=== PATIENT | male | born 1940 | race Caucasian/White ===

== ENCOUNTER 2017-04-22 10:54 | Emergency (ER) | payer MEDICARE, BC, OTHER ==
[2017-04-22] MEDS ORDERED: HYDROcodone/Acetaminophen 5/325 mg Tablet ONE (12:33)
[2017-04-22] MEDS ORDERED: Acyclovir 800 mg Tablet PO SCH (12:45)
[2017-04-22] MEDS ORDERED: Acyclovir 400 mg Tablet PO SCH (13:15)
[2017-04-22] MEDS ORDERED: Fluorescein Opthalmic Strip ONE (13:17)
[2017-04-22] MEDS ORDERED: Proparacaine 0.5% Opth 15 ML BOT ONE (13:17)
== END 2017-04-22 14:29 | disposition home or self-care (01) ==
LOC: ERS 10:54
DX: B02.30 Zoster ocular disease, unspecified (principal)
CPT/HCPCS: 99283

== ENCOUNTER 2018-02-19 14:43 | Outpatient (CLI) | payer MEDICARE, OTHER | END 2018-02-19 14:44 | disposition home or self-care (01) | LOC: LABBT 14:43 | PROVIDERS: ATTEND Urology | DX: Z01.818 Encounter for other preprocedural examination (principal); N40.0 Benign prostatic hyperplasia without lower urinary tract symptoms ==

== ENCOUNTER 2018-02-27 05:56 | Day surgery (SDC) | payer MEDICARE, OTHER ==
[2018-02-19 15:12] VITALS: BMI 21.6
--- NOTE | 2018-02-27 10:15 | OP ---
DATE OF PROCEDURE: 02/27/2018 PREOPERATIVE DIAGNOSIS: Benign prostatic hypertrophy. POSTOPERATIVE DIAGNOSIS: Benign prostatic hypertrophy. PROCEDURE: GreenLight laser vaporization of the prostate with enucleation of the lateral lobes. A total of 140,969 joules were used. SURGEON: Farideh Fox M.D. ANESTHESIA: General with endotracheal tube. COMPLICATIONS: None. DRAINS REMAININ Faroese Santo. ESTIMATED BLOOD LOSS: Minimal. SPECIMENS: Prostate. FINDINGS: At opening up of the prostatic urethra with enucleation of the lateral lobes with a good stream noted at the end. INDICATIONS: The patient is a 77-year-old male who was followed in the office for BPH and noted to have worsening lower urinary tract symptoms despite medications and so was set up for definitive surgical intervention. TECHNIQUE: The patient was brought into the room by Anesthesia, laid on the table in supine position. After receiving general anesthetic via endotracheal tube his perineum was prepped and draped in sterile fashion after he was placed in the lithotomy position. Using a 22.5 Faroese cystoscope and 30-degree lens was used to enter the bladder. The ureteral orifices were identified and preserved throughout the case. The middle lobe was not significantly enlarged, but elevated and taken down to the bladder floor. There was a trigonal ridge that was also taken down using the power of 80, still in a power of 80 the lateral lobes near the bladder neck were taken down and a power of 180 was used to enucleate the lateral lobes. These were taken all the way down to the veru. A power of 80 was used near the veru. When the scope was removed, a minimal stream was noted , I think that this was due to a chip that was still in the way, so the chips were all evacuated and ensured to be out and then with a full bladder, the scope was removed and a good stream was noted again. With a decompressed bladder hemostasis was ensured and a power of 80 was used to paint the prostatic bed and any concerning areas. There was no hematuria noted at the end of the case and so at this point, a wire was left in place. The scope was removed leaving the wire in place and then a [place] catheter was placed over the wire, leaving just the catheter itself. It was secured to the patient's leg and then he was awakened and transferred to the PACU in stable condition. A total of 140,969 joules were used. [facility]
[2018-02-27] MEDS ORDERED: Succinylcholine Chloride 20 MG/ML 10 ml SYRINGE FS ONE (10:21)
[2018-02-27] MEDS ORDERED: Lidocaine 1% PF 5 ML VIAL ONE (10:21)
[2018-02-27] MEDS ORDERED: Ondansetron HCl/PF 4 MG/2 ML Vial ONE (10:21)
[2018-02-27] MEDS ORDERED: PROPOFOL 200 MG/20 ML VIAL ONE (10:21)
== END 2018-02-27 11:30 | disposition home or self-care (01) ==
LOC: SDC 05:56
PROVIDERS: ATTEND Urology
PROC: 0VB08ZZ Excision of Prostate, Via Natural or Artificial Opening Endoscopic (ICD-10-PCS; principal; 2018-02-27)
DX: N40.1 Benign prostatic hyperplasia with lower urinary tract symptoms (principal); R35.0 Frequency of micturition; R35.1 Nocturia; R97.20 Elevated prostate specific antigen [PSA]; I10 Essential (primary) hypertension; E78.00 Pure hypercholesterolemia, unspecified; I25.10 Atherosclerotic heart disease of native coronary artery without angina pectoris; I25.2 Old myocardial infarction; Z87.891 Personal history of nicotine dependence; Z79.82 Long term (current) use of aspirin; Z79.899 Other long term (current) drug therapy; Z88.0 Allergy status to penicillin; Z95.5 Presence of coronary angioplasty implant and graft; Z95.1 Presence of aortocoronary bypass graft
CPT/HCPCS: 88305; 96374; J2001; J2405; J2704

== ENCOUNTER 2018-04-12 12:56 | Outpatient (CLI) | payer MEDICARE, OTHER ==
[~2018-04-12 12:56] MED LIST: Gadobenate Dimeglumine 529 MG/1 ML (20ML VIAL) ONE
--- NOTE | 2018-04-12 15:42 | MRI ---
BRAIN MRI WITH AND WITHOUT CONTRAST: CLINICAL HISTORY: Memory loss. FINDINGS: There is enlargement of the ventricular system. No midline shift or acute territorial infarction. T here are no significant signal abnormalities of brain parenchymal. Minimal chronic ischemic disease is present. No pathologic intraaxial enhancement. Imaged skull base flow voids are patent. [place] intraocular lenses are absent. IMPRESSION: 1. Enlarged ventricular system which is out of size proportion to the cerebral sulci and, therefore, an entity such as normal-pressure hydrocephalus is not excluded. Recommend clinical correlation in this regard. 2. Minimal chronic ischemic disease. 3. No acute territorial infarction or midline shift. POS: DAVIN
== END 2018-04-12 12:57 | disposition home or self-care (01) ==
LOC: BICMRI 12:56
PROVIDERS: ATTEND Specialist
DX: R41.3 Other amnesia (principal)
CPT/HCPCS: 70553; 81001; 82565; 87086; A9579

== ENCOUNTER 2018-07-05 09:43 | Outpatient (CLI) | payer MEDICARE, OTHER ==
--- NOTE | 2018-07-05 14:00 | PET ---
NUCLEAR MEDICINE PET IMAGING FOR DEMENTIA: HISTORY: Memory loss. COMPARISON: None. TECHNIQUE: PET imaging for dementia was performed after the patient was administered 8 mCi of F18-FDG. FINDINGS/IMPRESSION: There is no evidence of decreased radiotracer localization to suggest neurodegenerative disorder. POS: CHIOMA
== END 2018-07-05 09:44 | disposition home or self-care (01) ==
LOC: PET 09:43
PROVIDERS: ATTEND Psychiatry & Neurology Neurology
DX: G31.84 Mild cognitive impairment of uncertain or unknown etiology (principal)
CPT/HCPCS: 78608; A9552

== ENCOUNTER 2018-09-26 15:16 | Outpatient (CLI) | payer MEDICARE, OTHER ==
--- NOTE | 2018-09-26 16:39 | ULT ---
RENAL SONOGRAM: 09/26/2018 HISTORY: Prostate cancer. FINDINGS: The right kidney measures 10.7 cm x 4.8 cm, with the left kidney measuring 12 cm x 5.7 cm. A 2.7 cm anechoic structure is seen in the mid portion of the right kidney, which demonstrates sonographic lis racteristics most compatible with a renal cyst. No solid renal mass is seen. There is no hydronephr osis, renal calculus, or perinephric collection seen bilaterally. The urinary bladder is partially distended and has a grossly normal sonographic appearance, with a ur inary bladder volume of 189.2 mL. A post void urinary bladder volume was obtained of 66.4 mL. IMPRESSION: 1. Right renal cyst. 2. No evidence of hydronephrosis. 3. Small post void residual. POS: CHIOMA
== END 2018-09-26 15:17 | disposition home or self-care (01) ==
LOC: BICULT 15:16
PROVIDERS: ATTEND Urology
DX: N31.9 Neuromuscular dysfunction of bladder, unspecified (principal); N28.1 Cyst of kidney, acquired
CPT/HCPCS: 76770

== ENCOUNTER 2019-03-13 08:21 | Outpatient (CLI) | payer MEDICARE, OTHER ==
--- NOTE | 2019-03-13 11:32 | MRI ---
MRI PROSTATE WITHOUT AND WITH CONTRAST: Date: 03/13/19 COMPARISON: None. HISTORY: 78-year-old male with elevated PSA. Patient had prior TURP. TECHNIQUE: Multiplanar, multisequence MR images were obtained of the prostate without and with IV contrast. FINDINGS: There is moderate hypertrophy of the central gland consistent with BPH. There appears to be a TURP de fect within the central gland. No low T2 signal lesion is seen throughout the prostate that is suspicious. No low signal is seen on the ADC map in the peripheral zone of the prostate. No restricted diffusion is seen in the peripheral zone of the prostate. The seminal vesicles and neurovascular bundles appear intact. No pelvic adenopathy is seen. No marrow signal abnormality is present. IMPRESSION: PI-RADS category 2 - Low likelihood that a clinically significant cancer is present. POS: Jevon
== END 2019-03-13 08:22 | disposition home or self-care (01) ==
LOC: TBSIIMAG 08:21
PROVIDERS: ATTEND Urology
DX: R97.20 Elevated prostate specific antigen [PSA] (principal); Z80.42 Family history of malignant neoplasm of prostate
CPT/HCPCS: 72197; 82565

== ENCOUNTER 2020-04-13 13:38 | Outpatient (CLI) | payer MEDICARE, OTHER ==
--- NOTE | 2020-04-13 16:27 | MRI ---
MRI PELVIS (PROSTATE) WITH AND WITHOUT IV CONTRAST WITH ADDITIONAL EVALUATION ON INDEPENDENT 3D WORKS TATION: Date: 04/13/2020 HISTORY: Elevated PSA. Urgency of micturition. Benign prostatic hyperplasia with lower urinary tract symptoms. COMPARISON: 03/13/2019. FINDINGS: The prostate gland measures 5.2 x 4.2 x 4.5 cm with a volume of 51.5 mL. There is a 2.0 cm mass in the anterior fibromuscular stroma with restricted diffusion and low density on ADC map images and low T2 signal. This mass demonstrates abnormal postcontrast arterial enhanceme nt. No focal abnormal area of restricted diffusion is seen. No lentiform area of abnormally decreased T2 signal is seen in the transition zone. The prostatic capsule is intact. The seminal vesicles are intact. No pelvic lymphadenopathy is seen. Pelvic side wall is normal. There are changes of TURP. No abnormal areas of signal replacement are seen on the T1-weighted sequences of the pelvis to sugges t osseous metastatic disease. There is colonic diverticulosis. IMPRESSION: PI-RADS 5 - Very high (clinically significant cancer is highly likely to be present). POS: OFF
== END 2020-04-13 13:39 | disposition home or self-care (01) ==
LOC: TBSIIMAG 13:38
PROVIDERS: ATTEND Urology
DX: N40.1 Benign prostatic hyperplasia with lower urinary tract symptoms (principal); R39.15 Urgency of urination; R97.20 Elevated prostate specific antigen [PSA]
CPT/HCPCS: 72197

== ENCOUNTER 2020-05-08 06:57 | Outpatient (CLI) | payer MEDICARE, OTHER ==
--- NOTE | 2020-05-08 11:44 | RAD ---
XR Chest Pa Lat STANDARD HISTORY: Preoperative evaluation COMPARISON: 03/17/2015 FINDINGS: The heart size is normal. Changes of median sternotomy are present. The aorta is tortuous. The lungs are well expanded without focal areas of consolidation, pneumothorax or pleural effusions. Nipple shadows are again seen. IMPRESSION: No radiographic evidence of acute cardiopulmonary process.
[2020-05-08 13:51] LABS: INR-International Normal Ratio 0.9; PTT 28.3 sec (22.9-36.1); Prothrombin Time 12.7 sec (12.0-14.7)
[2020-05-08 13:58] LABS: Hemoglobin 15.5 g/dL (14.0-18.0); Mean Corpuscular HGB CONC 33.3 g/dL (32.0-36.0); Mean Corpuscular Hemoglobin 29.6 pg (27.0-31.0); Platelet Count 215 thou/uL (130-400); RBC Distribution Width 12.5 % (11.5-14.5); Red Blood Cell (RBC) Count 5.23 mill/uL (4.70-6.10); White Blood Cell (WBC) Count 7.3 thou/uL (4.8-10.8)
[2020-05-08 14:19] LABS: Anion Gap 10 mmol/L (10-20); BUN (Urea Nitrogen) 16 mg/dL (8.4-25.7); Calc. Creatinine Clearance 0 mL/min (70-130); Calcium 9.8 mg/dL (7.8-10.44); Carbon Dioxide 31 mmol/L (23-31); Chloride 102 mmol/L (98-107); Estimated GFR-MDRD 75; Glucose 91 mg/dL (83-110); Potassium 4.4 mmol/L (3.5-5.1); Sodium 139 mmol/L (136-145)
[2020-05-09 12:05] LABS: SARS-CoV-2 MS2 Positive; SARS-CoV-2 N Gene Negative; SARS-CoV-2 S Gene Negative; SARS-CoV-2 by NAA Not Detected (NotDetected); SARS-CoV-2 orf1ab Negative
--- NOTE | 2020-05-15 13:20 | EKG ---
Test Reason : PREOP Blood Pressure : / mmHG Vent. Rate : 063 BPM Atrial Rate : 063 BPM P-R Int : 190 ms QRS Dur : 082 ms QT Int : 414 ms P-R-T Axes : 030 -08 068 degrees QTc Int : 423 ms Normal sinus rhythm Normal ECG No previous ECGs available Confirmed by DR. Kenna BRIGHT ([id number]) on 05/15/2020 1:19:46 PM Referred By: Confirmed By:DR. Kenna BRIGHT
== END 2020-05-08 06:58 | disposition home or self-care (01) ==
LOC: LABBT 06:57
PROVIDERS: ATTEND Urology
DX: Z01.818 Encounter for other preprocedural examination (principal); N40.1 Benign prostatic hyperplasia with lower urinary tract symptoms; R39.15 Urgency of urination; R97.20 Elevated prostate specific antigen [PSA]; Z80.42 Family history of malignant neoplasm of prostate; Z20.828 Contact with and (suspected) exposure to other viral communicable diseases
CPT/HCPCS: 71046; 80048; 85027; 85610; 85730; 93005; U0003; 87635; 93010

== ENCOUNTER 2020-05-13 07:58 | Day surgery (SDC) | payer MEDICARE, OTHER ==
[2020-05-12 13:35] VITALS: BMI 21.2
[2020-05-13] MEDS ORDERED: Levofloxacin 500 mg/D5W 100 ml Premix Bag ONE (08:24)
[2020-05-13] MEDS ORDERED: Sodium Chloride 0.9% 100 ML ONE (08:24)
[2020-05-13] MEDS ORDERED: cefTRIAXone\\ROCEPHIN 2 GM VIAL ONE (08:24)
[2020-05-13] MEDS ORDERED: Lidocaine 2% Jelly 5 ML TUBE ONE (09:27)
[2020-05-13] MEDS ORDERED: Propofol 500 MG/50 ML VIAL ONE ×2 (09:27→10:28)
[2020-05-13] MEDS ORDERED: Fentanyl 100 MCG/2 ML VIAL ONE (09:27)
[2020-05-13] MEDS ORDERED: PROPOFOL 200 MG/20 ML VIAL ONE (09:36)
[2020-05-13] MEDS ORDERED: Lidocaine 1% PF 5 ML VIAL ONE (09:36)
[2020-05-13] MEDS ORDERED: EPHEDRINE 25 MG/5 ML SYRINGE ONE (09:36)
[2020-05-13] MEDS ORDERED: Ondansetron PF 4 MG/2 ML Vial ONE (09:36)
[2020-05-13] MEDS ORDERED: Dexamethasone 20 MG/5 ML VIAL ONE (09:36)
[2020-05-13] MEDS ORDERED: PHENYLEPHRINE-NS 100 MCG/ML 10 ML SYRINGE ONE (09:36)
[2020-05-13] MEDS ORDERED: Phenazopyridine HCl 100 MG TAB ONE (11:55)
[2020-05-13] MEDS ORDERED: HYDROcodone/Acetaminophen 5/325 mg Tablet ONE (12:05)
--- NOTE | 2020-05-14 10:43 | OP ---
DATE OF PROCEDURE: 05/13/2020 PREOPERATIVE DIAGNOSES: 1. 80-year-old male with history of benign prostatic hyperplasia, status post GreenLight prostatectomy, volume study by Dr. Farideh Fox MD. 2. Elevated PSA. Family history of prostate cancer with unremarkable digital rectal exam with PSA of 13. POSTOPERATIVE DIAGNOSES: 1. 80-year-old male with history of benign prostatic hyperplasia, status post GreenLight prostatectomy, volume study by Dr. Farideh Fox MD. 2. Elevated PSA. Family history of prostate cancer with unremarkable digital rectal exam with PSA of 13. PROCEDURES PERFORMED: Flexible cystoscopy, 18-[place] Islander indwelling Santo catheter placement periprocedural, transrectal ultrasound volume study, extended core prostate biopsy, MRI guided US biopsy ANESTHESIA: TIVA. COMPLICATIONS: None apparent. DISPOSITION: To recovery room in stable condition. INDICATIONS FOR PROCEDURE AND HISTORY: Mr. Luna is a pleasant 80-year-old male previously followed by Dr. Fox with history of BPH, on dual medical therapy. He has history of incomplete emptying and he underwent transrectal ultrasound volume study by Dr. Fox, underwent GreenLight vaporization of the prostate back in February of 2018. He presents for prostate biopsy, MRI fusion as his PSA demonstrates elevation to 13.5 with unremarkable ELNIA. MRI was obtained demonstrating a region of interest PI-RADS 5, 2 cm anterior midline with unremarkable ELINA, no lymphadenopathy. He presents today for MRI fusion biopsy. Risks and complications of procedure have been discussed with him in detail including, but not limited to: Bleeding, pain, infection, injury to adjacent organs, urosepsis, clot retention, and prostate abscess. All questions were answered to his satisfaction and desired to proceed. DESCRIPTION OF PROCEDURE: After an informed consent was signed, the patient was taken to the operating room, placed in a supine position with TIVA anesthesia administered. His genital area was formally prepped and draped. A flexible cystoscopy was performed, which demonstrated no stricture. The prostatic urethra demonstrates TUR defect with bladder neck demonstrating patency caliber about 18-Sol[place] Islander. I was able to negotiate the scope without difficulty and bladder demonstrated trabeculation with no bladder tumor stones are seen. UOs are about 3 mm proximal to the bladder neck. At this time, a 16-[place] Islander Santo catheter was passed without significant issues and 10 mL insufflated. He was then placed in the left lateral decubitus position. A transrectal ultrasound was probed in which the digital rectal exam remains benign. We did a volume study, demonstrating urethral length of 2.6, height of 2.3, width of 5.35, and volume estimated to be 17 g. At this time, we loaded our MRI fusion, to fuse our ultrasound with the MRI. The lesion is 2 cm anterior midline. Despite multiple attempts to troubleshoot, the software would not recognize our ultrasound probe. We did attempt to call tech support, however, no success. Decision was made to proceed with an ultrasound-guided biopsy of the region of interest as I was able to make out the hypoechoic area anterior stromal consistent with the MRI, visualized with ultrasound. Four passes were passed in the region of interest, care was taken to avoid the urethra and Santo catheter remained in situ. I sampled four areas from the area of hypoechoic region likely consistent with the MRI region of interest. Subsequently, Santo catheter was removed demonstrating clear yellow urine and no defect in the indwelling urethral Santo catheter. No significant hematuria was noted. He tolerated the procedure well and transported to the recovery room in stable condition. Discharged with Levaquin 500 mg one p.o. b.i.d. for 5 days and will follow up with me regarding pathology. Job ID: [id number] MTDD
== END 2020-05-13 14:30 | disposition home or self-care (01) ==
LOC: SDC 07:58
PROVIDERS: ATTEND Urology
PROC: 0VB03ZX Excision of Prostate, Percutaneous Approach, Diagnostic (ICD-10-PCS; principal; 2020-05-13)
DX: C61 Malignant neoplasm of prostate (principal); N40.1 Benign prostatic hyperplasia with lower urinary tract symptoms; R39.15 Urgency of urination; G47.30 Sleep apnea, unspecified; I25.2 Old myocardial infarction; I25.10 Atherosclerotic heart disease of native coronary artery without angina pectoris; I10 Essential (primary) hypertension; Z87.891 Personal history of nicotine dependence; Z79.82 Long term (current) use of aspirin; Z79.899 Other long term (current) drug therapy; Z88.0 Allergy status to penicillin; Z95.1 Presence of aortocoronary bypass graft; Z95.5 Presence of coronary angioplasty implant and graft
CPT/HCPCS: 88305; 88344; J0696; J1100; J1956; J2405; J2704; J3010; J3490

== ENCOUNTER 2020-06-12 09:16 | Outpatient (CLI) | payer MEDICARE, OTHER ==
--- NOTE | 2020-06-12 10:23 | CT ---
ABDOMEN CT WITH AND WITHOUT CONTRAST PELVIC CT WITH AND WITHOUT CONTRAST: HISTORY: Prostate cancer. Frequent urination. COMPARISON: None. TECHNIQUE: Abdomen and pelvic CT is performed with and without contrast following urogram protocol. Coronal refo rmatted images are submitted for interpretation. FINDINGS: Lung bases: Scarring and atelectasis, minimal. Heart: Normal heart size. There are coronary artery calcifications. No significant pericardial fluid. Aorta: Normal caliber suprarenal aorta. Scattered atherosclerosis. There is dilatation of the infrare nal abdominal aorta secondary to an aneurysm measuring 3.9 cm anterior-posterior x 3.8 cm mediolateral x 2.9 cm craniocaudal. Liver: Multiple hypodensities which are presumed to represent hepatic cyst. No enhancing masses. Spleen: Appropriate enhancement. Pancreas: Appropriate enhancement. Adrenal glands: Symmetric enhancement. Lymph nodes: No gastrohepatic, retrocrural or periportal lymphadenopathy. Portal vein: Patent. Gallbladder: Unremarkable. Kidneys: Noncontrast: No evidence of nephrolithiasis. Exophytic 2.8 x 3.0 cm cyst emanating from the right rick al cortex. No enhancing masses in either kidney. There is symmetric enhancement on the arterial phase images. Contrast: Symmetric enhancement. No enhancing masses. Delayed: Symmetric excretion. No filling defects in the intrarenal or extrarenal collecting system. S ubcentimeter hypodensity in the mid to lower right renal cortex is too small to characterize. Mesentery: No mass, nephropathy, free air or free fluid. Alimentary canal: Limited evaluation due to lack of oral contrast administration. No evidence of shawn l obstruction. The ileocecal junction is normal. Normal caliber appendix. Scattered fecal material in a nondistended/nondilated colon. CT PELVIS: Reproductive organs and pelvis: Mild enlarged prostate gland. No evidence of pelvic lymphadenopathy. Urinary bladder: Normal mucosal appearance. Bilateral ureteral jets are noted on the delayed images. No lytic or blastic lesions in the osseous structures. Multilevel degenerative changes. IMPRESSION: 1. No evidence of obstructive uropathy or abnormal enhancing masses in the left or right kidney. 2. Aneurysmal dilatation of the infrarenal abdominal aorta. 3. Mildly enlarged prostate gland. Transcribed Date/Time: 06/12/2020 10:29 AM
--- NOTE | 2020-06-12 13:43 | NM ---
Exam: Nuclear medicine whole body bone scan HISTORY: Prostate cancer. Comparison none TECHNIQUE: Patient was administered 31.10 mCi of technetium 99m MDP intravenously. After appropriate delay, whole body imaging is performed FINDINGS: Physiologic distribution of the radiotracer. No scintigraphic evidence of osseous metastase s. There are degenerative changes involving bilateral first carpal metacarpal articulations, and shoulders. IMPRESSION: No scintigraphic evidence of osseous metastases.
[2020-06-12] MEDS ORDERED: Iopamidol 370 76% 100 ML VIAL ONE (15:10)
== END 2020-06-12 09:17 | disposition home or self-care (01) ==
LOC: CT 09:16
PROVIDERS: ATTEND Urology
DX: C61 Malignant neoplasm of prostate (principal); R97.20 Elevated prostate specific antigen [PSA]; Z80.42 Family history of malignant neoplasm of prostate; I77.811 Abdominal aortic ectasia
CPT/HCPCS: 74178; 78306; 82565; A9503; Q9967

== ENCOUNTER 2021-07-05 07:03 | Day surgery (SDC) | payer MEDICARE, OTHER ==
[2021-07-02 09:15] VITALS: BMI 21.2
[2021-07-05 08:05] VITALS: BP 139/81; TEMP 98
[2021-07-05 11:40] LABS: Ref Lab Test Ordered BETA AMYLOID 42/40; Reference Lab Name LABCORP
== END 2021-07-05 09:35 | disposition home or self-care (01) ==
LOC: RAD 07:03
PROVIDERS: ATTEND Specialist
PROC: 009U3ZX Drainage of Spinal Canal, Percutaneous Approach, Diagnostic (ICD-10-PCS; principal; 2021-07-05)
DX: G30.9 Alzheimer's disease, unspecified (principal); F02.80 Dementia in other diseases classified elsewhere, unspecified severity, without behavioral disturbance, psychotic disturbance, mood disturbance, and anxiety; N32.9 Bladder disorder, unspecified; Z79.82 Long term (current) use of aspirin; Z79.899 Other long term (current) drug therapy; Z88.0 Allergy status to penicillin
CPT/HCPCS: 62270

== ENCOUNTER 2021-07-12 08:11 | Outpatient (CLI) | payer MEDICARE, OTHER | END 2021-07-12 08:12 | disposition home or self-care (01) | LOC: TBSIIMAG 08:11 | PROVIDERS: ATTEND Urology | DX: C61 Malignant neoplasm of prostate (principal) | CPT/HCPCS: 72197 ==

== ENCOUNTER 2021-07-14 09:07 | Outpatient (CLI) | payer MEDICARE, OTHER | END 2021-07-14 09:08 | disposition home or self-care (01) | LOC: NM 09:07 | PROVIDERS: ATTEND Urology | DX: C61 Malignant neoplasm of prostate (principal) | CPT/HCPCS: 78306; A9503 ==

== ENCOUNTER 2021-08-27 09:48 | Outpatient (CLI) | payer MEDICARE, OTHER | END 2021-08-27 09:49 | disposition home or self-care (01) | LOC: RAD 09:48 | PROVIDERS: ATTEND Specialist | DX: K22.5 Diverticulum of esophagus, acquired (principal) | CPT/HCPCS: 74220 ==

== ENCOUNTER 2022-08-18 11:38 | Inpatient (IN) | payer MEDICARE, OTHER ==
[2022-08-18 12:15] LABS: #Lymphocytes 1.3 thou/uL (1.20-3.40); #Monocytes 0.6 thou/uL (0.11-0.59); #Neutrophils 5.5 thou/uL (1.40-6.50); %Basophils 0.1 % (0.0-1.0); %Eosinophils 0.5 % (0.0-10.0); %Monocytes 7.7 % (0.0-10.0); %Neutrophils 73.6 % (42.0-75.0); Hemoglobin 13.9 g/dL (14.0-18.0); Mean Corpuscular HGB CONC 33.3 g/dL (32.0-36.0); Mean Corpuscular Hemoglobin 28.9 pg (27.0-31.0); Mean Corpuscular Volume 86.5 fl (78.0-98.0); Mean Platelet Volume 8.7 fL (7.4-10.4); Platelet Count 205 10x3/uL (130-400); RBC Distribution Width 11.8 % (11.5-14.5); Red Blood Cell (RBC) Count 4.81 mill/uL (4.70-6.10); White Blood Cell (WBC) Count 7.5 10x3/uL (4.8-10.8)
[2022-08-18 12:54] LABS: ALT (SGPT) 19 U/L (8-55); AST (SGOT) 26 U/L (5-34); Albumin 4.6 g/dL (3.4-4.8); Alkaline Phosphatase 78 U/L (40-110); Anion Gap 11 mmol/L (10-20); BUN (Urea Nitrogen) 16 mg/dL (8.4-25.7); Bilirubin, Total 0.6 mg/dL (0.2-1.2); Calc. Creatinine Clearance 0 mL/min (70-130); Calcium 9.9 mg/dL (7.8-10.44); Carbon Dioxide 28 mmol/L (23-31); Chloride 104 mmol/L (98-107); Estimated GFR 82; Globulin 2.6 g/dL (2.4-3.5); Glucose 115 mg/dL (83-110); Potassium 4.4 mmol/L (3.5-5.1); Protein, Total 7.2 g/dL (5.8-8.1); Sodium 139 mmol/L (136-145)
[2022-08-18 15:43] LABS: Bilirubin Negative (Negative); Blood, Urine Negative (Negative); Clarity Clear (Clear); Glucose, Urine (Dipstick) Normal (Negative); Ketone, Urine Negative (Negative); Leukocyte Negative Leu/uL (Negative); Nitrite Negative (Negative); Protein, Urine (Dipstick) Negative (Neg-Trace); Specific Gravity, Urine 1.006 (1.002-1.036); Urobilinogen Normal mg/dL (Less than 2)
[2022-08-18 16:26] LABS: Troponin I 0.083 ng/mL (< 0.028)
[2022-08-18 19:40] LABS: Troponin I 0.059 ng/mL (< 0.028)
[2022-08-18 22:58] VITALS: BMI 22.8
[2022-08-18] MEDS ORDERED: Ondansetron PF 4 MG/2 ML Vial IVP PRN (23:48)
[2022-08-18] MEDS ORDERED: Acetaminophen 325 MG TAB PO PRN (23:59)
[2022-08-19] MEDS: Sodium Chloride 0.9% 1,000 ML IV SCH ×5 (00:47→22:28)
[2022-08-19] MEDS ORDERED: Amlodipine 5 MG TAB PO SCH (01:00)
[2022-08-19 05:30] LABS: #Eosinphils 0.1 thou/uL (0.0-0.7); #Monocytes 0.8 thou/uL (0.11-0.59); #Neutrophils 4.8 thou/uL (1.40-6.50); %Basophils 0.6 % (0.0-1.0); %Eosinophils 1.1 % (0.0-10.0); %Lymphocytes 26.1 % (21.0-51.0); %Monocytes 10.2 % (0.0-10.0); Hemoglobin 14.2 g/dL (14.0-18.0); Mean Corpuscular HGB CONC 33.5 g/dL (32.0-36.0); Mean Corpuscular Hemoglobin 28.8 pg (27.0-31.0); Mean Corpuscular Volume 85.8 fl (78.0-98.0); Mean Platelet Volume 8.9 fL (7.4-10.4); Platelet Count 188 10x3/uL (130-400); RBC Distribution Width 11.7 % (11.5-14.5); Red Blood Cell (RBC) Count 4.94 mill/uL (4.70-6.10); White Blood Cell (WBC) Count 7.7 10x3/uL (4.8-10.8)
[2022-08-19 05:55] LABS: Anion Gap 15 mmol/L (10-20); BUN (Urea Nitrogen) 13 mg/dL (8.4-25.7); Calc. Creatinine Clearance 73 mL/min (70-130); Calcium 9.6 mg/dL (7.8-10.44); Carbon Dioxide 23 mmol/L (23-31); Chloride 106 mmol/L (98-107); Cholesterol 251 mg/dl (< 200 Desired); Estimated GFR 89; Glucose 116 mg/dL (83-110); HDL Cholesterol 50 mg/dL (>60 Neg Risk); LDL Cholesterol, Calculated 180 mg/dL; Potassium 3.8 mmol/L (3.5-5.1); Sodium 140 mmol/L (136-145); Triglycerides 103 mg/dL (Less than 150)
[2022-08-19] MEDS: Hydrochlorothiazide 25 MG TAB PO SCH (08:49)
[2022-08-19] MEDS: Ezetimibe 10 MG TAB PO SCH (08:49)
[2022-08-19] MEDS: Amlodipine 5 MG TAB PO SCH (08:50)
[2022-08-19] MEDS: Famotidine 20 MG TAB PO SCH ×2 (08:50→20:39)
[2022-08-19] MEDS: Aspirin 81 mg Enteric Coated Tablet PO SCH (08:50)
[2022-08-19] MEDS ORDERED: Lorazepam 1 MG TAB PO SCH (11:00)
[2022-08-19] MEDS: cloNIDine 0.1 MG TAB PO PRN (15:49)
[2022-08-19] MEDS: Lorazepam 2 MG/ML VIAL SLOW IVP PRN ×2 (17:06→20:38)
[2022-08-19] MEDS ORDERED: Ziprasidone 20 MG VIAL IM SCH (18:00)
[2022-08-19] MEDS: Atorvastatin Calcium 40 MG TAB PO SCH (20:39)
[2022-08-19] MEDS ORDERED: Sterile Water 10 ML VIAL FS PRN (22:15)
[2022-08-19] MEDS: hydrALAZINE 20 MG/ML VIAL SLOW IVP PRN (22:21)
[2022-08-20] MEDS: Ziprasidone 20 MG VIAL IM SCH ×2 (00:01→00:17)
[2022-08-20] MEDS: Lorazepam 2 MG/ML VIAL SLOW IVP PRN (02:42)
[2022-08-20 05:40] LABS: #Lymphocytes 1.3 thou/uL (1.20-3.40); #Monocytes 0.7 thou/uL (0.11-0.59); #Neutrophils 6.8 thou/uL (1.40-6.50); %Basophils 0.5 % (0.0-1.0); %Eosinophils 0.1 % (0.0-10.0); %Lymphocytes 14.2 % (21.0-51.0); %Monocytes 8.2 % (0.0-10.0); Mean Corpuscular HGB CONC 33.2 g/dL (32.0-36.0); Mean Corpuscular Hemoglobin 28.4 pg (27.0-31.0); Mean Corpuscular Volume 85.6 fl (78.0-98.0); Mean Platelet Volume 9.1 fL (7.4-10.4); Platelet Count 203 10x3/uL (130-400); RBC Distribution Width 11.9 % (11.5-14.5); Red Blood Cell (RBC) Count 5.62 mill/uL (4.70-6.10); White Blood Cell (WBC) Count 8.9 10x3/uL (4.8-10.8)
[2022-08-20 06:12] LABS: Anion Gap 19 mmol/L (10-20); BUN (Urea Nitrogen) 12 mg/dL (8.4-25.7); Calc. Creatinine Clearance 73 mL/min (70-130); Carbon Dioxide 15 mmol/L (23-31); Chloride 106 mmol/L (98-107); Estimated GFR 89; Glucose 110 mg/dL (83-110); Potassium 3.7 mmol/L (3.5-5.1); Sodium 136 mmol/L (136-145)
[2022-08-20] MEDS ORDERED: FLU VACC QS2022-23(65YR UP)/PF 240 MCG/0.7 ML SYRINGE IM ONE (09:00)
[2022-08-20] MEDS: Hydrochlorothiazide 25 MG TAB PO SCH (09:18)
[2022-08-20] MEDS: Aspirin 81 mg Enteric Coated Tablet PO SCH (09:18)
[2022-08-20] MEDS: Amlodipine 5 MG TAB PO SCH (09:18)
[2022-08-20] MEDS: Famotidine 20 MG TAB PO SCH ×2 (09:18→21:51)
[2022-08-20] MEDS: Ezetimibe 10 MG TAB PO SCH (09:19)
[2022-08-20] MEDS: Sodium Chloride 0.9% 1,000 ML IV SCH (16:37)
[2022-08-20] MEDS: Zolpidem Tartrate 5 MG TAB PO PRN (21:51)
[2022-08-20] MEDS: Atorvastatin Calcium 40 MG TAB PO SCH (21:51)
[2022-08-21] MEDS: Sodium Chloride 0.9% 1,000 ML IV SCH ×2 (04:51→20:09)
[2022-08-21] MEDS: Aspirin 81 mg Enteric Coated Tablet PO SCH (08:48)
[2022-08-21] MEDS: Amlodipine 5 MG TAB PO SCH (08:48)
[2022-08-21] MEDS: Hydrochlorothiazide 25 MG TAB PO SCH (08:48)
[2022-08-21] MEDS: Famotidine 20 MG TAB PO SCH ×2 (08:48→20:05)
[2022-08-21] MEDS: Ezetimibe 10 MG TAB PO SCH (08:49)
[2022-08-21] MEDS: Atorvastatin Calcium 40 MG TAB PO SCH (20:05)
[2022-08-21] MEDS: Zolpidem Tartrate 5 MG TAB PO PRN ×2 (20:06→22:23)
[2022-08-22] MEDS: Lorazepam 2 MG/ML VIAL SLOW IVP PRN ×2 (00:32→22:45)
[2022-08-22] MEDS: Famotidine 20 MG TAB PO SCH ×2 (09:37→20:34)
[2022-08-22] MEDS: Ezetimibe 10 MG TAB PO SCH (09:37)
[2022-08-22] MEDS: Hydrochlorothiazide 25 MG TAB PO SCH (09:37)
[2022-08-22] MEDS: Aspirin 81 mg Enteric Coated Tablet PO SCH (09:38)
[2022-08-22] MEDS: Amlodipine 5 MG TAB PO SCH (09:38)
[2022-08-22] MEDS: Sodium Chloride 0.9% 1,000 ML IV SCH ×2 (16:49→17:53)
[2022-08-22] MEDS: Zolpidem Tartrate 5 MG TAB PO PRN (20:34)
[2022-08-22] MEDS: Atorvastatin Calcium 40 MG TAB PO SCH (20:34)
[2022-08-22] MEDS: cloNIDine 0.1 MG TAB PO PRN (20:34)
[2022-08-22] MEDS: hydrALAZINE 20 MG/ML VIAL SLOW IVP PRN (22:45)
[2022-08-23] MEDS: Aspirin 81 mg Enteric Coated Tablet PO SCH (07:02)
[2022-08-23] MEDS: Hydrochlorothiazide 25 MG TAB PO SCH (08:50)
[2022-08-23] MEDS: Famotidine 20 MG TAB PO SCH ×2 (08:50→20:53)
[2022-08-23] MEDS: Ezetimibe 10 MG TAB PO SCH (08:50)
[2022-08-23] MEDS: Amlodipine 5 MG TAB PO SCH (08:50)
[2022-08-23] MEDS: Sodium Chloride 0.9% 1,000 ML IV SCH (08:53)
[2022-08-23 12:40] LABS: CSF, Glucose 67 mg/dl (40-70); CSF, Protein 45 mg/dL (15-40)
[2022-08-23 16:23] LABS: Ref Lab Test Ordered BETA AMYLOID CSF; Reference Lab Name LABCORP
[2022-08-23] MEDS: Atorvastatin Calcium 40 MG TAB PO SCH (20:53)
[2022-08-23] MEDS: QUEtiapine 25 MG TAB PO SCH (20:53)
[2022-08-24] MEDS: Sodium Chloride 0.9% 1,000 ML IV SCH ×2 (00:59→12:07)
[2022-08-24] MEDS: Aspirin 81 mg Enteric Coated Tablet PO SCH (08:48)
[2022-08-24] MEDS: Amlodipine 5 MG TAB PO SCH (08:48)
[2022-08-24] MEDS: Famotidine 20 MG TAB PO SCH ×2 (08:48→20:57)
[2022-08-24] MEDS: Hydrochlorothiazide 25 MG TAB PO SCH (08:49)
[2022-08-24] MEDS: Ezetimibe 10 MG TAB PO SCH (08:49)
[2022-08-24] MEDS ORDERED: Iopamidol-370 76% 500 ML 1 ML ONE (09:16)
[2022-08-24] MEDS: QUEtiapine 25 MG TAB PO SCH (20:57)
[2022-08-24] MEDS: Atorvastatin Calcium 40 MG TAB PO SCH (20:57)
[2022-08-25] MEDS: Sodium Chloride 0.9% 1,000 ML IV SCH ×2 (02:16→21:31)
[2022-08-25 05:33] LABS: #Eosinphils 0.3 thou/uL (0.0-0.7); #Lymphocytes 2.2 thou/uL (1.20-3.40); #Monocytes 0.6 thou/uL (0.11-0.59); #Neutrophils 3.5 thou/uL (1.40-6.50); %Basophils 0.7 % (0.0-1.0); %Eosinophils 3.9 % (0.0-10.0); %Lymphocytes 33.1 % (21.0-51.0); %Monocytes 9.3 % (0.0-10.0); %Neutrophils 53.1 % (42.0-75.0); Hemoglobin 13.7 g/dL (14.0-18.0); Mean Corpuscular HGB CONC 35.3 g/dL (32.0-36.0); Mean Corpuscular Hemoglobin 30.4 pg (27.0-31.0); Mean Corpuscular Volume 85.9 fl (78.0-98.0); Platelet Count 174 10x3/uL (130-400); RBC Distribution Width 11.9 % (11.5-14.5); Red Blood Cell (RBC) Count 4.52 mill/uL (4.70-6.10); White Blood Cell (WBC) Count 6.6 10x3/uL (4.8-10.8)
[2022-08-25 05:53] LABS: Anion Gap 12 mmol/L (10-20); BUN (Urea Nitrogen) 23 mg/dL (8.4-25.7); Calc. Creatinine Clearance 70 mL/min (70-130); Carbon Dioxide 23 mmol/L (23-31); Chloride 106 mmol/L (98-107); Estimated GFR 88; Glucose 102 mg/dL (83-110); Potassium 3.3 mmol/L (3.5-5.1); Sodium 138 mmol/L (136-145)
[2022-08-25] MEDS: Famotidine 20 MG TAB PO SCH ×2 (09:14→20:36)
[2022-08-25] MEDS: Ezetimibe 10 MG TAB PO SCH (09:14)
[2022-08-25] MEDS: Aspirin 81 mg Enteric Coated Tablet PO SCH (09:14)
[2022-08-25] MEDS: Hydrochlorothiazide 25 MG TAB PO SCH (09:14)
[2022-08-25] MEDS: Amlodipine 5 MG TAB PO SCH (09:14)
[2022-08-25] MEDS: Potassium Chloride 10 MEQ TAB PO SCH (18:11)
[2022-08-25] MEDS: Atorvastatin Calcium 40 MG TAB PO SCH (20:36)
[2022-08-25] MEDS: QUEtiapine 25 MG TAB PO SCH (20:36)
[2022-08-26 05:59] LABS: #Basophils 0.1 thou/uL (0.0-0.2); #Eosinphils 0.2 thou/uL (0.0-0.7); #Lymphocytes 1.7 thou/uL (1.20-3.40); #Monocytes 0.8 thou/uL (0.11-0.59); #Neutrophils 5.5 thou/uL (1.40-6.50); %Basophils 0.6 % (0.0-1.0); %Eosinophils 2.1 % (0.0-10.0); %Lymphocytes 21.1 % (21.0-51.0); %Monocytes 9.7 % (0.0-10.0); %Neutrophils 66.5 % (42.0-75.0); Hemoglobin 13.2 g/dL (14.0-18.0); Mean Corpuscular HGB CONC 33.6 g/dL (32.0-36.0); Mean Corpuscular Volume 86.3 fl (78.0-98.0); Mean Platelet Volume 9.5 fL (7.4-10.4); Platelet Count 174 10x3/uL (130-400); RBC Distribution Width 11.9 % (11.5-14.5); Red Blood Cell (RBC) Count 4.54 mill/uL (4.70-6.10); White Blood Cell (WBC) Count 8.3 10x3/uL (4.8-10.8)
[2022-08-26 06:19] LABS: Anion Gap 14 mmol/L (10-20); BUN (Urea Nitrogen) 20 mg/dL (8.4-25.7); Calc. Creatinine Clearance 74 mL/min (70-130); Calcium 9.2 mg/dL (7.8-10.44); Carbon Dioxide 24 mmol/L (23-31); Chloride 105 mmol/L (98-107); Estimated GFR 90; Glucose 96 mg/dL (83-110); Potassium 3.6 mmol/L (3.5-5.1); Sodium 139 mmol/L (136-145)
[2022-08-26] MEDS: Sodium Chloride 0.9% 1,000 ML IV SCH (06:35)
[2022-08-26 08:22] VITALS: BP 147/78; TEMP 97.3
[2022-08-26] MEDS: Amlodipine 5 MG TAB PO SCH (08:33)
[2022-08-26] MEDS: Ezetimibe 10 MG TAB PO SCH (08:33)
[2022-08-26] MEDS: Potassium Chloride 10 MEQ TAB PO SCH (08:33)
[2022-08-26] MEDS: Famotidine 20 MG TAB PO SCH (08:33)
[2022-08-26] MEDS: Aspirin 81 mg Enteric Coated Tablet PO SCH (08:33)
[2022-08-26] MEDS: Hydrochlorothiazide 25 MG TAB PO SCH (08:33)
== END 2022-08-26 12:30 | disposition home health service (06) | DRG 56 ==
LOC: ERS 11:38 → ERHOLD 14:48 → NEURO 21:34 → OBSVTOIN 08-19 17:49
PROVIDERS: ADMIT Specialist; ATTEND Specialist
PROC: 009U3ZZ Drainage of Spinal Canal, Percutaneous Approach (ICD-10-PCS; principal; 2022-08-23)
PROC: B01B1ZZ Fluoroscopy of Spinal Cord using Low Osmolar Contrast (ICD-10-PCS; 2022-08-23)
DX: G91.2 (Idiopathic) normal pressure hydrocephalus (principal); I21.A1 Myocardial infarction type 2; C61 Malignant neoplasm of prostate; F03.90 Unspecified dementia, unspecified severity, without behavioral disturbance, psychotic disturbance, mood disturbance, and anxiety; I10 Essential (primary) hypertension; K21.9 Gastro-esophageal reflux disease without esophagitis; E78.5 Hyperlipidemia, unspecified; G47.00 Insomnia, unspecified; I25.10 Atherosclerotic heart disease of native coronary artery without angina pectoris; I71.40 Abdominal aortic aneurysm, without rupture, unspecified; G47.30 Sleep apnea, unspecified; R00.1 Bradycardia, unspecified; Z20.822 Contact with and (suspected) exposure to COVID-19; Z88.0 Allergy status to penicillin; Z95.1 Presence of aortocoronary bypass graft; Z90.89 Acquired absence of other organs; I25.2 Old myocardial infarction; Z98.890 Other specified postprocedural states; Z79.899 Other long term (current) drug therapy
CPT/HCPCS: 36415; 36416; 62270; 70450; 70553; 71045; 74177; 80048; 80053; 80061; 81003; 82553; 82945; 84157; 84443; 84484; 85025; 87070; 87205; 87811; 93005; 93306; 95712; 95819; 95957; 96372; 96374; G0378; J0360; J1650; J2060; J3486; J7050; Q9967; U0003; U0005

== ENCOUNTER 2022-11-07 10:15 | Inpatient (IN) | payer MEDICARE, OTHER ==
[2022-11-23] MEDS ORDERED: Ondansetron PF 4 MG/2 ML Vial ONE (12:40)
[2022-11-23] MEDS ORDERED: Labetalol HCl 100 MG/20 ML VIAL ONE (12:40)
[2022-11-23] MEDS ORDERED: Dexamethasone 20 MG/5 ML VIAL ONE (12:40)
[2022-11-23] MEDS ORDERED: Lidocaine 1% PF 5 ML VIAL ONE (12:40)
[2022-11-23] MEDS ORDERED: PROPOFOL 200 MG/20 ML VIAL ONE (12:40)
[2022-11-23] MEDS ORDERED: Rocuronium Bromide 10 MG/ML (10ML VIAL) ONE (12:40)
[2022-11-23] MEDS ORDERED: Esmolol 100 MG/10 ML VIAL ONE (12:40)
[2022-11-23] MEDS ORDERED: Vancomycin 1 GM VIAL ONE (13:00)
[2022-11-23] MEDS ORDERED: HYDROmorphone 2 MG/ML VIAL ONE (13:12)
[2022-11-23] MEDS ORDERED: SUGAMMADEX SODIUM 200 MG/2 ML VIAL ONE (13:20)
[2022-11-23] MEDS ORDERED: Promethazine HCl 25 MG/ML VIAL IM PRN (13:43)
[2022-11-23] MEDS ORDERED: Mag-Al 1200 mg/1200 mg/30 ML UDCUP PO PRN (13:43)
[2022-11-23] MEDS ORDERED: Fentanyl 250 MCG/5 ML VIAL ONE (13:53)
[2022-11-23] MEDS ORDERED: HYDROmorphone 0.5 MG/0.5 ML SYRINGE ONE (13:54)
[2022-11-23] MEDS ORDERED: hydrALAZINE 20 MG/ML VIAL ONE (14:04)
[2022-11-23] MEDS ORDERED: Morphine 4 MG/ML VIAL ONE (14:07)
[2022-11-23] MEDS ORDERED: Morphine 2 MG/ML VIAL ONE (14:37)
[2022-11-23] MEDS ORDERED: Clindamycin/D5W 900 MG in Premix Bag 1 BAG IVPB SCH (15:00)
[2022-11-23] MEDS ORDERED: Non-Formulary Medication 1 EACH PO PRN (15:19)
[2022-11-23] MEDS: Sodium Chloride 0.9% 1,000 ML IV SCH (15:22)
[2022-11-23] MEDS: Morphine 2 MG/ML VIAL SLOW IVP PRN (15:27)
[2022-11-23] MEDS ORDERED: Promethazine HCl 25 MG/ML VIAL IM/IV PRN (15:30)
[2022-11-23] MEDS ORDERED: Morphine Sulfate 2 MG/ML SYRINGE SLOW IVP PRN (15:30)
[2022-11-23] MEDS ORDERED: Ondansetron HCl/PF 4 MG/2 ML Vial IVP PRN (15:30)
[2022-11-23] MEDS ORDERED: PACU-Morphine 4MG/ML VIAL SLOW IVP PRN (15:30)
[2022-11-23] MEDS ORDERED: HYDROmorphone 2 MG/ML VIAL SLOW IVP PRN (15:30)
[2022-11-23] MEDS: Ondansetron PF 4 MG/2 ML Vial IVP PRN ×2 (15:53→22:37)
[2022-11-23] MEDS: Labetalol HCl 100 MG/20 ML VIAL SLOW IVP PRN (16:20)
[2022-11-23] MEDS: Clindamycin/D5W 900 MG in Premix Bag 1 BAG IVPB SCH (18:27)
[2022-11-23] MEDS ORDERED: Promethazine HCl 12.5 MG in Sodium Chloride 0.9% 50 ML IVPB SCH (18:45)
[2022-11-23] MEDS: Famotidine 20 MG TAB PO SCH (21:22)
[2022-11-23] MEDS: HYDROcodone/Acetaminophen 10/325 mg Tablet PO PRN (22:36)
[2022-11-24] MEDS: Morphine 2 MG/ML VIAL SLOW IVP PRN ×3 (00:06→10:47)
[2022-11-24] MEDS: Clindamycin/D5W 900 MG in Premix Bag 1 BAG IVPB SCH ×3 (00:26→07:37)
[2022-11-24] MEDS: Sodium Chloride 0.9% 1,000 ML IV SCH ×2 (01:43→17:22)
[2022-11-24] MEDS: Labetalol HCl 100 MG/20 ML VIAL SLOW IVP PRN (04:37)
[2022-11-24] MEDS: Ondansetron PF 4 MG/2 ML Vial IVP PRN ×2 (07:01→21:32)
[2022-11-24] MEDS ORDERED: Docusate Sodium 100 MG/10 ML UDCUP PO PRN (08:23)
[2022-11-24] MEDS: Amlodipine 5 MG TAB PO SCH (08:52)
[2022-11-24] MEDS: HYDROcodone/Acetaminophen 10/325 mg Tablet PO PRN ×3 (08:53→17:26)
[2022-11-24] MEDS: Famotidine 20 MG TAB PO SCH ×2 (08:54→21:32)
[2022-11-24] MEDS: Acetaminophen 325 MG TAB PO PRN ×2 (12:32→21:32)
[2022-11-24] MEDS: Promethazine HCl 12.5 MG in Sodium Chloride 0.9% 50 ML IVPB PRN (12:44)
[2022-11-24] MEDS ORDERED: Clindamycin/D5W 900 MG in Premix Bag 1 BAG IVPB SCH (14:00)
[2022-11-25] MEDS: hydrALAZINE 20 MG/ML VIAL SLOW IVP PRN ×2 (04:51→08:36)
[2022-11-25] MEDS: Sodium Chloride 0.9% 1,000 ML IV SCH ×2 (05:53→21:50)
[2022-11-25] MEDS ORDERED: Promethazine 25 MG TAB PO PRN (08:03)
[2022-11-25] MEDS: Pantoprazole 40 MG VIAL IVP SCH ×2 (08:37→21:57)
[2022-11-25] MEDS: Promethazine HCl 12.5 MG in Sodium Chloride 0.9% 50 ML IVPB PRN ×2 (09:11→18:17)
[2022-11-25] MEDS: Amlodipine 5 MG TAB PO SCH (09:20)
[2022-11-25] MEDS: Famotidine 20 MG TAB PO SCH ×2 (10:48→21:56)
[2022-11-25] MEDS: Ondansetron PF 4 MG/2 ML Vial IVP PRN (10:56)
[2022-11-25] MEDS: Labetalol HCl 100 MG/20 ML VIAL SLOW IVP PRN ×2 (11:03→17:01)
[2022-11-25] MEDS: Acetaminophen 325 MG TAB PO PRN (21:53)
[2022-11-26] MEDS: Acetaminophen 325 MG TAB PO PRN ×2 (04:39→20:20)
[2022-11-26] MEDS: Famotidine 20 MG TAB PO SCH ×2 (09:18→20:22)
[2022-11-26] MEDS: Amlodipine 5 MG TAB PO SCH ×2 (09:18→20:22)
[2022-11-26] MEDS: Pantoprazole 40 MG VIAL IVP SCH ×2 (09:19→20:23)
[2022-11-26] MEDS: Labetalol HCl 100 MG/20 ML VIAL SLOW IVP PRN ×2 (09:20→11:02)
[2022-11-26] MEDS ORDERED: Scopolamine 1.5 mg/72 hour Patch TD SCH (10:00)
[2022-11-26] MEDS: Promethazine HCl 12.5 MG in Sodium Chloride 0.9% 50 ML IVPB PRN ×2 (10:38→19:37)
[2022-11-26] MEDS: Sodium Chloride 0.9% 1,000 ML IV SCH ×2 (10:57→14:27)
[2022-11-26 13:58] LABS: #Lymphocytes 0.8 thou/uL (1.20-3.40); #Monocytes 0.4 thou/uL (0.11-0.59); #Neutrophils 6.6 thou/uL (1.40-6.50); %Basophils 0.3 % (0.0-1.0); %Eosinophils 0.5 % (0.0-10.0); %Lymphocytes 10.4 % (21.0-51.0); %Monocytes 5.3 % (0.0-10.0); %Neutrophils 83.5 % (42.0-75.0); Hemoglobin 13.8 g/dL (14.0-18.0); Mean Corpuscular HGB CONC 34.2 g/dL (32.0-36.0); Mean Corpuscular Hemoglobin 29.9 pg (27.0-31.0); Mean Corpuscular Volume 87.4 fl (78.0-98.0); Mean Platelet Volume 8.3 fL (7.4-10.4); Platelet Count 181 10x3/uL (130-400); RBC Distribution Width 12.7 % (11.5-14.5); Red Blood Cell (RBC) Count 4.61 mill/uL (4.70-6.10); White Blood Cell (WBC) Count 7.9 10x3/uL (4.8-10.8)
[2022-11-26] MEDS: hydrALAZINE 20 MG/ML VIAL SLOW IVP SCH ×3 (14:19→23:19)
[2022-11-26 14:23] LABS: Troponin I Less than 0.010 ng/mL (< 0.028)
[2022-11-26] MEDS: Ondansetron PF 4 MG/2 ML Vial IVP PRN ×2 (14:27→23:15)
[2022-11-26 14:46] LABS: Anion Gap 15 mmol/L (10-20); BUN (Urea Nitrogen) 15 mg/dL (8.4-25.7); Calc. Creatinine Clearance 72 mL/min (70-130); Calcium 9.5 mg/dL (7.8-10.44); Carbon Dioxide 24 mmol/L (23-31); Chloride 104 mmol/L (98-107); Estimated GFR 88; Glucose 132 mg/dL (83-110); Phosphorus 2.8 mg/dL (2.3-4.7); Potassium 3.8 mmol/L (3.5-5.1); Sodium 139 mmol/L (136-145)
[2022-11-27] MEDS: Acetaminophen 325 MG TAB PO PRN (05:51)
[2022-11-27] MEDS: Promethazine HCl 12.5 MG in Sodium Chloride 0.9% 50 ML IVPB PRN (05:52)
[2022-11-27] MEDS: hydrALAZINE 20 MG/ML VIAL SLOW IVP SCH ×3 (06:39→19:22)
[2022-11-27] MEDS ORDERED: VIT D3 PO SCH (09:00)
[2022-11-27] MEDS ORDERED: [UNRECOGNIZED DRUG - OTHER] PO SCH (09:00)
[2022-11-27] MEDS ORDERED: Loratadine 10 MG TAB PO SCH (09:00)
[2022-11-27] MEDS ORDERED: SUMAtriptan Succinate 50 MG TAB PO SCH (09:00)
[2022-11-27] MEDS ORDERED: CALCIUM PHOSPHATE TRIB PO SCH (09:00)
[2022-11-27] MEDS: Amlodipine 5 MG TAB PO SCH ×2 (09:31→20:23)
[2022-11-27] MEDS: Acetaminophen 325 MG TAB PO SCH ×4 (09:33→22:10)
[2022-11-27] MEDS: Famotidine 20 MG TAB PO SCH ×2 (09:33→20:24)
[2022-11-27] MEDS: Cyanocobalamin (Vitamin B-12) 1,000 MCG TAB PO SCH (09:33)
[2022-11-27] MEDS: Pantoprazole 40 MG VIAL IVP SCH ×2 (09:35→20:25)
[2022-11-27] MEDS: Promethazine 25 MG TAB PO SCH ×3 (09:35→22:11)
[2022-11-27] MEDS: Sodium Chloride 0.9% 1,000 ML IV SCH (09:48)
[2022-11-27 17:28] VITALS: BMI 22.0
[2022-11-28] MEDS: Promethazine 25 MG TAB PO SCH ×3 (03:22→14:13)
[2022-11-28] MEDS: Acetaminophen 325 MG TAB PO SCH ×4 (03:22→14:15)
[2022-11-28] MEDS: HYDROcodone/Acetaminophen 10/325 mg Tablet PO PRN ×3 (05:00→11:24)
[2022-11-28 05:30] LABS: #Basophils 0.1 thou/uL (0.0-0.2); #Eosinphils 0.1 thou/uL (0.0-0.7); #Lymphocytes 1.7 thou/uL (1.20-3.40); #Monocytes 0.8 thou/uL (0.11-0.59); #Neutrophils 4.6 thou/uL (1.40-6.50); %Basophils 0.7 % (0.0-1.0); %Eosinophils 1.3 % (0.0-10.0); %Lymphocytes 23.2 % (21.0-51.0); %Monocytes 11.3 % (0.0-10.0); %Neutrophils 63.5 % (42.0-75.0); Hemoglobin 11.8 g/dL (14.0-18.0); Mean Corpuscular HGB CONC 34.6 g/dL (32.0-36.0); Mean Corpuscular Hemoglobin 30.3 pg (27.0-31.0); Mean Corpuscular Volume 87.6 fl (78.0-98.0); Mean Platelet Volume 8.4 fL (7.4-10.4); Platelet Count 186 10x3/uL (130-400); RBC Distribution Width 12.6 % (11.5-14.5); White Blood Cell (WBC) Count 7.3 10x3/uL (4.8-10.8)
[2022-11-28 05:42] LABS: Anion Gap 11 mmol/L (10-20); BUN (Urea Nitrogen) 13 mg/dL (8.4-25.7); Calc. Creatinine Clearance 74 mL/min (70-130); Calcium 9.1 mg/dL (7.8-10.44); Carbon Dioxide 25 mmol/L (23-31); Chloride 107 mmol/L (98-107); Estimated GFR 89; Glucose 101 mg/dL (83-110); Potassium 3.4 mmol/L (3.5-5.1); Sodium 140 mmol/L (136-145)
[2022-11-28] MEDS: Sodium Chloride 0.9% 1,000 ML IV SCH (06:00)
[2022-11-28] MEDS: hydrALAZINE 20 MG/ML VIAL SLOW IVP PRN ×2 (06:07→11:23)
[2022-11-28] MEDS ORDERED: SUMAtriptan Succinate 50 MG TAB PO PRN (08:12)
[2022-11-28] MEDS: Famotidine 20 MG TAB PO SCH (08:55)
[2022-11-28] MEDS: Amlodipine 5 MG TAB PO SCH (08:55)
[2022-11-28] MEDS: Cyanocobalamin (Vitamin B-12) 1,000 MCG TAB PO SCH (08:55)
[2022-11-28] MEDS: Pantoprazole 40 MG VIAL IVP SCH (08:56)
[2022-11-28] MEDS: Ondansetron PF 4 MG/2 ML Vial IVP PRN (11:15)
[2022-11-28 12:14] VITALS: BP 175/82; TEMP 97.6
== END 2022-11-28 14:45 | disposition home or self-care (01) | DRG 33 ==
LOC: SURG A 11-23 11:10 → UNDOADMIN 11-23 11:11 → UNDODISIN 11-23 11:15 → CCU 11-23 15:37 → SJJU 11-24 11:40
PROVIDERS: ADMIT Neurological Surgery; ATTEND Neurological Surgery
PROC: 00160J6 Bypass Cerebral Ventricle to Peritoneal Cavity with Synthetic Substitute, Open Approach (ICD-10-PCS; principal; 2022-11-23)
PROC: 0WJG4ZZ Inspection of Peritoneal Cavity, Percutaneous Endoscopic Approach (ICD-10-PCS; 2022-11-23)
DX: G91.2 (Idiopathic) normal pressure hydrocephalus (principal); I25.10 Atherosclerotic heart disease of native coronary artery without angina pectoris; I11.0 Hypertensive heart disease with heart failure; E78.5 Hyperlipidemia, unspecified; I50.9 Heart failure, unspecified; I16.0 Hypertensive urgency; D53.9 Nutritional anemia, unspecified; K21.9 Gastro-esophageal reflux disease without esophagitis; Z95.1 Presence of aortocoronary bypass graft; Z90.49 Acquired absence of other specified parts of digestive tract; Z88.0 Allergy status to penicillin; Z79.82 Long term (current) use of aspirin; Z90.89 Acquired absence of other organs; Z85.820 Personal history of malignant melanoma of skin; Z82.49 Family history of ischemic heart disease and other diseases of the circulatory system
CPT/HCPCS: 36415; 70450; 80048; 83735; 83880; 84100; 84484; 85025; C1713; C1776; C9113; J0360; J1100; J1170; J2270; J2272; J2405; J2550; J2704; J3010; J3370; J3490; J7050; Q0169

== ENCOUNTER 2022-11-07 10:17 | Outpatient (CLI) | payer MEDICARE, OTHER ==
[2022-11-07 12:28] LABS: Hemoglobin 13.1 g/dL (13.5-17.5); Mean Corpuscular HGB CONC 33.4 g/dL (32.0-36.0); Mean Corpuscular Hemoglobin 28.5 pg (27.0-33.0); Mean Corpuscular Volume 85.2 fl (81.2-95.1); Mean Platelet Volume 11.1 fl (7.4-10.4); Platelet Count 209 10x3/uL (150-450); RBC Distribution Width 13.8 % (11.5-14.5); White Blood Cell (WBC) Count 6.6 10x3/uL (3.5-10.5)
[2022-11-07 12:54] LABS: Anion Gap 15 mmol/L (10-20); BUN (Urea Nitrogen) 22 mg/dL (8.4-25.7); Calc. Creatinine Clearance 0 mL/min (70-130); Calcium 9.8 mg/dL (7.8-10.44); Carbon Dioxide 28 mmol/L (23-31); Chloride 103 mmol/L (98-107); Estimated GFR 76; Glucose 97 mg/dL (83-110); Potassium 4.2 mmol/L (3.5-5.1); Sodium 142 mmol/L (136-145)
== END 2022-11-07 10:18 | disposition home or self-care (01) ==
LOC: LABBT 10:17
PROVIDERS: ATTEND Neurological Surgery
DX: Z01.812 Encounter for preprocedural laboratory examination (principal); G91.9 Hydrocephalus, unspecified
CPT/HCPCS: 80048; 85027; 93005; 93010

== ENCOUNTER 2023-01-02 15:29 | Inpatient (IN) | payer MEDICARE, OTHER ==
[2023-01-02 16:00] LABS: #Monocytes 0.9 thou/uL (0.11-0.59); %Basophils 0.3 % (0.0-1.0); %Eosinophils 0.4 % (0.0-10.0); %Lymphocytes 18.7 % (21.0-51.0); %Monocytes 9.3 % (0.0-10.0); %Neutrophils 71.1 % (42.0-75.0); Hemoglobin 12.3 g/dL (14.0-18.0); Mean Corpuscular HGB CONC 34.7 g/dL (32.0-36.0); Mean Corpuscular Hemoglobin 29.3 pg (27.0-31.0); Mean Corpuscular Volume 84.3 fl (78.0-98.0); Mean Platelet Volume 10.1 fL (7.4-10.4); Platelet Count 242 10x3/uL (130-400); White Blood Cell (WBC) Count 9.9 10x3/uL (4.8-10.8)
[2023-01-02 16:24] LABS: ALT (SGPT) 12 U/L (8-55); AST (SGOT) 20 U/L (5-34); Albumin 4.4 g/dL (3.4-4.8); Alkaline Phosphatase 70 U/L (40-110); Anion Gap 13 mmol/L (10-20); BUN (Urea Nitrogen) 19 mg/dL (8.4-25.7); Bilirubin, Total 0.7 mg/dL (0.2-1.2); Calc. Creatinine Clearance 0 mL/min (70-130); Calcium 9.8 mg/dL (7.8-10.44); Carbon Dioxide 26 mmol/L (23-31); Chloride 100 mmol/L (98-107); Estimated GFR 82; Globulin 2.8 g/dL (2.4-3.5); Glucose 111 mg/dL (83-110); Potassium 3.2 mmol/L (3.5-5.1); Protein, Total 7.2 g/dL (5.8-8.1); Sodium 136 mmol/L (136-145)
[2023-01-02] MEDS ORDERED: Acetaminophen/Codeine 30-300mg Tablet PO PRN (22:28)
[2023-01-02] MEDS ORDERED: Morphine 2 MG/ML VIAL SLOW IVP PRN (22:28)
[2023-01-02] MEDS ORDERED: traMADol HCl 50 MG TAB PO PRN (22:28)
[2023-01-02] MEDS ORDERED: Promethazine 25 MG TAB PO PRN ×2 (22:28→22:31)
[2023-01-02] MEDS ORDERED: Nitroglycerin 0.4 MG TAB (25 Tab Bottle) SL PRN (22:31)
[2023-01-02] MEDS ORDERED: Zolpidem Tartrate 5 MG TAB PO PRN (22:37)
[2023-01-02] MEDS ORDERED: Loratadine 10 MG TAB PO PRN (22:38)
[2023-01-02] MEDS ORDERED: Sodium Chloride 0.9% 1,000 ML IV SCH (22:45)
[2023-01-03] MEDS: Acetaminophen 325 MG TAB PO PRN ×3 (01:00→23:54)
[2023-01-03 06:27] LABS: #Eosinphils 0.1 thou/uL (0.0-0.7); #Monocytes 0.8 thou/uL (0.11-0.59); #Neutrophils 4.9 thou/uL (1.40-6.50); %Basophils 0.4 % (0.0-1.0); %Lymphocytes 18.4 % (21.0-51.0); %Monocytes 10.7 % (0.0-10.0); %Neutrophils 69.2 % (42.0-75.0); Mean Corpuscular Hemoglobin 29.7 pg (27.0-31.0); Mean Corpuscular Volume 84.9 fl (78.0-98.0); Mean Platelet Volume 10.4 fL (7.4-10.4); Platelet Count 203 10x3/uL (130-400); RBC Distribution Width 12.8 % (11.5-14.5); Red Blood Cell (RBC) Count 4.04 mill/uL (4.70-6.10); White Blood Cell (WBC) Count 7.1 10x3/uL (4.8-10.8)
[2023-01-03 06:39] LABS: INR-International Normal Ratio 1.1; PTT 32.6 sec (22.9-36.1); Prothrombin Time 14.3 sec (12.0-14.7)
[2023-01-03 06:53] LABS: Anion Gap 12 mmol/L (10-20); BUN (Urea Nitrogen) 12 mg/dL (8.4-25.7); Calc. Creatinine Clearance 60 mL/min (70-130); Calcium 9.3 mg/dL (7.8-10.44); Carbon Dioxide 29 mmol/L (23-31); Chloride 101 mmol/L (98-107); Estimated GFR 91; Glucose 106 mg/dL (83-110); Potassium 2.9 mmol/L (3.5-5.1); Sodium 139 mmol/L (136-145)
[2023-01-03] MEDS ORDERED: fentaNYL 50 mcg/mL 1 mL Vial SLOW IVP PRN (07:55)
[2023-01-03] MEDS: Potassium Chloride 10 MEQ TAB PO SCH (08:54)
[2023-01-03] MEDS: Amlodipine 5 MG TAB PO SCH (09:43)
[2023-01-03] MEDS: Hydrochlorothiazide 25 MG TAB PO SCH (09:43)
[2023-01-03] MEDS: Ezetimibe 10 MG TAB PO SCH (09:43)
[2023-01-03] MEDS: Famotidine/PF 20 mg/2ml Vial SLOW IVP SCH ×2 (09:44→20:55)
[2023-01-03 11:25] VITALS: BMI 17.1
[2023-01-03] MEDS ORDERED: Thrombin 5000 UNITS/5 ML VIAL ONE (14:36)
[2023-01-03] MEDS ORDERED: Bacitracin Zinc Ointment 30 gm TUBE ONE (14:36)
[2023-01-03] MEDS ORDERED: Levofloxacin 500 mg/D5W 100 ml Premix Bag ONE (14:43)
[2023-01-03] MEDS ORDERED: fentaNYL PF 100 MCG/2 ML SYRINGE ONE (14:44)
[2023-01-03] MEDS ORDERED: Dexamethasone 20 MG/5 ML VIAL ONE (14:55)
[2023-01-03] MEDS ORDERED: Ondansetron PF 4 MG/2 ML Vial ONE (14:55)
[2023-01-03] MEDS ORDERED: Rocuronium Bromide 10 MG/ML (10ML VIAL) ONE (14:55)
[2023-01-03] MEDS ORDERED: PROPOFOL 200 MG/20 ML VIAL ONE (14:55)
[2023-01-03] MEDS ORDERED: Lidocaine 1% PF 5 ML VIAL ONE (14:55)
[2023-01-03] MEDS ORDERED: Clindamycin/D5W 900 mg/50 ml Premix Bag ONE (14:57)
[2023-01-03] MEDS ORDERED: SUGAMMADEX SODIUM 200 MG/2 ML VIAL ONE (16:03)
[2023-01-03] MEDS ORDERED: Lorazepam 2 MG/ML VIAL SLOW IVP PRN (16:37)
[2023-01-03] MEDS ORDERED: fentaNYL 50 mcg/mL 1 mL Vial ONE ×4 (16:46→17:47)
[2023-01-03] MEDS ORDERED: Ondansetron HCl/PF 4 MG/2 ML Vial IVP PRN (16:53)
[2023-01-03] MEDS ORDERED: Labetalol HCl 100 MG/20 ML VIAL ONE (16:56)
[2023-01-03] MEDS ORDERED: Labetalol HCl 100 MG/20 ML VIAL SLOW IVP PRN (16:57)
[2023-01-03] MEDS ORDERED: hydrALAZINE 20 MG/ML VIAL ONE (17:55)
[2023-01-03] MEDS: hydrALAZINE 20 MG/ML VIAL SLOW IVP PRN (18:27)
[2023-01-03] MEDS: Clindamycin/D5W 600 MG in Premix Bag 1 BAG IVPB SCH ×2 (18:30→23:47)
[2023-01-03] MEDS: Sodium Chloride 0.9% 1,000 ML IV SCH (18:30)
[2023-01-03] MEDS: Ondansetron PF 4 MG/2 ML Vial IVP PRN (18:31)
[2023-01-03] MEDS: Acetaminophen/Codeine 30-300mg Tablet PO PRN ×2 (18:31→22:11)
[2023-01-04] MEDS: HYDROcodone/Acetaminophen 5/325 mg Tablet PO PRN ×2 (01:28→11:20)
[2023-01-04] MEDS: Sodium Chloride 0.9% 1,000 ML IV SCH ×2 (01:29→17:49)
[2023-01-04 04:42] LABS: #Monocytes 0.6 thou/uL (0.11-0.59); #Neutrophils 6.8 thou/uL (1.40-6.50); %Basophils 0.1 % (0.0-1.0); %Lymphocytes 9.3 % (21.0-51.0); %Monocytes 6.7 % (0.0-10.0); %Neutrophils 83.5 % (42.0-75.0); Hemoglobin 12.2 g/dL (14.0-18.0); Mean Corpuscular HGB CONC 35.1 g/dL (32.0-36.0); Mean Corpuscular Hemoglobin 29.1 pg (27.0-31.0); Mean Corpuscular Volume 83.1 fl (78.0-98.0); Mean Platelet Volume 10.2 fL (7.4-10.4); Platelet Count 237 10x3/uL (130-400); RBC Distribution Width 12.8 % (11.5-14.5); Red Blood Cell (RBC) Count 4.19 mill/uL (4.70-6.10); White Blood Cell (WBC) Count 8.2 10x3/uL (4.8-10.8)
[2023-01-04 05:08] LABS: Anion Gap 16 mmol/L (10-20); BUN (Urea Nitrogen) 12 mg/dL (8.4-25.7); Calc. Creatinine Clearance 60 mL/min (70-130); Calcium 9.1 mg/dL (7.8-10.44); Carbon Dioxide 23 mmol/L (23-31); Chloride 98 mmol/L (98-107); Estimated GFR 91; Glucose 111 mg/dL (83-110); Potassium 3.2 mmol/L (3.5-5.1); Sodium 134 mmol/L (136-145)
[2023-01-04] MEDS: Clindamycin/D5W 600 MG in Premix Bag 1 BAG IVPB SCH ×4 (05:17→23:46)
[2023-01-04] MEDS: Ondansetron PF 4 MG/2 ML Vial IVP PRN ×2 (05:18→16:54)
[2023-01-04] MEDS: hydrALAZINE 20 MG/ML VIAL SLOW IVP PRN ×2 (06:24→18:15)
[2023-01-04] MEDS: Amlodipine 5 MG TAB PO SCH (08:20)
[2023-01-04] MEDS: Potassium Chloride 10 MEQ TAB PO SCH (08:20)
[2023-01-04] MEDS: Hydrochlorothiazide 25 MG TAB PO SCH (08:21)
[2023-01-04] MEDS: Ezetimibe 10 MG TAB PO SCH (08:21)
[2023-01-04] MEDS: Famotidine/PF 20 mg/2ml Vial SLOW IVP SCH ×2 (08:22→20:47)
[2023-01-04] MEDS: Acetaminophen 325 MG TAB PO PRN (17:53)
[2023-01-05 03:59] LABS: #Basophils 0.1 thou/uL (0.0-0.2); #Eosinphils 0.1 thou/uL (0.0-0.7); #Neutrophils 7.7 thou/uL (1.40-6.50); %Basophils 0.5 % (0.0-1.0); %Eosinophils 1.2 % (0.0-10.0); %Lymphocytes 11.9 % (21.0-51.0); %Monocytes 9.5 % (0.0-10.0); %Neutrophils 76.4 % (42.0-75.0); Mean Corpuscular HGB CONC 34.9 g/dL (32.0-36.0); Mean Corpuscular Hemoglobin 28.9 pg (27.0-31.0); Mean Corpuscular Volume 82.9 fl (78.0-98.0); Mean Platelet Volume 9.8 fL (7.4-10.4); Platelet Count 274 10x3/uL (130-400); RBC Distribution Width 13.1 % (11.5-14.5); White Blood Cell (WBC) Count 10.1 10x3/uL (4.8-10.8)
[2023-01-05 04:21] LABS: Anion Gap 12 mmol/L (10-20); BUN (Urea Nitrogen) 10 mg/dL (8.4-25.7); Calc. Creatinine Clearance 57 mL/min (70-130); Calcium 9.6 mg/dL (7.8-10.44); Carbon Dioxide 28 mmol/L (23-31); Chloride 97 mmol/L (98-107); Estimated GFR 89; Glucose 109 mg/dL (83-110); Potassium 2.9 mmol/L (3.5-5.1); Sodium 134 mmol/L (136-145)
[2023-01-05] MEDS ORDERED: Electrolyte Replacement Protocol 1 EACH FS PRN (05:45)
[2023-01-05] MEDS: Potassium Chloride 20 MEQ TAB PO SCH ×2 (06:15→09:00)
[2023-01-05] MEDS: Clindamycin/D5W 600 MG in Premix Bag 1 BAG IVPB SCH ×3 (06:59→18:08)
[2023-01-05] MEDS: Sodium Chloride 0.9% 1,000 ML IV SCH (07:49)
[2023-01-05] MEDS: Potassium Chloride 10 MEQ TAB PO SCH (08:05)
[2023-01-05] MEDS: Amlodipine 5 MG TAB PO SCH (08:06)
[2023-01-05] MEDS: Hydrochlorothiazide 25 MG TAB PO SCH (08:06)
[2023-01-05] MEDS: Ezetimibe 10 MG TAB PO SCH (08:06)
[2023-01-05] MEDS: Famotidine/PF 20 mg/2ml Vial SLOW IVP SCH ×2 (08:07→20:33)
[2023-01-05] MEDS ORDERED: Haloperidol Lactate 5 MG/ML VIAL SLOW IVP PRN (12:12)
[2023-01-05] MEDS ORDERED: Linaclotide [Linzess] 290 MCG Capsule PO SCH (13:45)
[2023-01-05] MEDS: Linaclotide [Linzess] 290 MCG Capsule PO SCH (13:47)
[2023-01-05] MEDS ORDERED: QUEtiapine 25 MG TAB PO SCH (21:00)
[2023-01-05] MEDS ORDERED: Sulfameth/Trimethoprim DS 800-160mg TAB PO SCH (21:00)
[2023-01-06] MEDS: Clindamycin/D5W 600 MG in Premix Bag 1 BAG IVPB SCH ×2 (00:15→05:03)
[2023-01-06 05:58] LABS: Anion Gap 11 mmol/L (10-20); BUN (Urea Nitrogen) 10 mg/dL (8.4-25.7); Calc. Creatinine Clearance 61 mL/min (70-130); Calcium 9.2 mg/dL (7.8-10.44); Carbon Dioxide 26 mmol/L (23-31); Chloride 103 mmol/L (98-107); Estimated GFR 91; Glucose 102 mg/dL (83-110); Potassium 3.3 mmol/L (3.5-5.1); Sodium 137 mmol/L (136-145)
[2023-01-06] MEDS ORDERED: Potassium Chloride 20 MEQ TAB PO SCH (08:00)
[2023-01-06] MEDS: Ezetimibe 10 MG TAB PO SCH (09:04)
[2023-01-06] MEDS: Amlodipine 5 MG TAB PO SCH (09:04)
[2023-01-06] MEDS: Hydrochlorothiazide 25 MG TAB PO SCH (09:04)
[2023-01-06] MEDS: Famotidine/PF 20 mg/2ml Vial SLOW IVP SCH (09:05)
[2023-01-06] MEDS: Potassium Chloride 10 MEQ TAB PO SCH (09:05)
[2023-01-06] MEDS: Linaclotide [Linzess] 290 MCG Capsule PO SCH (09:06)
[2023-01-06 11:39] VITALS: BP 137/73; TEMP 98.1
== END 2023-01-06 13:10 | disposition home or self-care (01) | DRG 25 ==
LOC: ERS 15:29 → SURG A 22:12 → CCU 01-03 17:16 → SURG A 01-05 15:23
PROVIDERS: ADMIT Specialist; ATTEND Specialist
PROC: 00C43ZZ Extirpation of Matter from Intracranial Subdural Space, Percutaneous Approach (ICD-10-PCS; principal; 2023-01-03)
DX: S06.5X0A Traumatic subdural hemorrhage without loss of consciousness, initial encounter (principal); S06.1X0A Traumatic cerebral edema without loss of consciousness, initial encounter; S06.A0XA Traumatic brain compression without herniation, initial encounter; G91.1 Obstructive hydrocephalus; R64 Cachexia; Z68.1 Body mass index [BMI] 19.9 or less, adult; F05 Delirium due to known physiological condition; F03.90 Unspecified dementia, unspecified severity, without behavioral disturbance, psychotic disturbance, mood disturbance, and anxiety; I10 Essential (primary) hypertension; K21.9 Gastro-esophageal reflux disease without esophagitis; M19.90 Unspecified osteoarthritis, unspecified site; N32.81 Overactive bladder; E78.5 Hyperlipidemia, unspecified; D64.9 Anemia, unspecified; E87.6 Hypokalemia; W18.30XA Fall on same level, unspecified, initial encounter; Y92.009 Unspecified place in unspecified non-institutional (private) residence as the place of occurrence of the external cause; G47.00 Insomnia, unspecified; J30.9 Allergic rhinitis, unspecified; Z98.2 Presence of cerebrospinal fluid drainage device; Z85.46 Personal history of malignant neoplasm of prostate; I25.2 Old myocardial infarction; Z95.1 Presence of aortocoronary bypass graft; Z90.89 Acquired absence of other organs; Z88.0 Allergy status to penicillin; Z79.899 Other long term (current) drug therapy; Z85.820 Personal history of malignant melanoma of skin
CPT/HCPCS: 36415; 70450; 70486; 72125; 80048; 80053; 85025; 85610; 85730; 93005; C1713; J0360; J1100; J1956; J2060; J2405; J2704; J3010; J3490; J7050; Q0169; S0028

== ENCOUNTER 2023-02-21 11:28 | Outpatient (CLI) | payer MEDICARE, OTHER | END 2023-02-21 11:29 | disposition home or self-care (01) | LOC: BICCT 11:28 | PROVIDERS: ATTEND Neurological Surgery | DX: G91.9 Hydrocephalus, unspecified (principal) | CPT/HCPCS: 70450 ==

== ENCOUNTER 2023-04-04 12:01 | Outpatient (CLI) | payer MEDICARE, OTHER | END 2023-04-04 12:02 | disposition home or self-care (01) | LOC: BICRAD 12:01 | PROVIDERS: ATTEND Specialist | DX: M25.512 Pain in left shoulder (principal) ==

== ENCOUNTER 2023-05-02 11:03 | Outpatient (CLI) | payer MEDICARE, OTHER | END 2023-05-02 11:04 | disposition home or self-care (01) | LOC: BICCT 11:03 | PROVIDERS: ATTEND Neurological Surgery | DX: G91.9 Hydrocephalus, unspecified (principal); G93.89 Other specified disorders of brain | CPT/HCPCS: 70450 ==

== ENCOUNTER 2023-12-01 08:39 | Outpatient (CLI) | payer MEDICARE, OTHER ==
[2023-12-01] MEDS ORDERED: E-Z-HD 98% W/W 340GM BOT (x-ray ONLY) ONE (08:56)
[2023-12-01] MEDS ORDERED: Barium Sulfate 96% 176 GM BOT (xray ONLY) ONE (08:56)
== END 2023-12-01 08:40 | disposition home or self-care (01) ==
LOC: RAD 08:39
PROVIDERS: ATTEND Surgery
DX: K44.9 Diaphragmatic hernia without obstruction or gangrene (principal); K22.5 Diverticulum of esophagus, acquired; K22.2 Esophageal obstruction
CPT/HCPCS: 74220